=== PATIENT | female | born 1960 | race Caucasian/White ===

== ENCOUNTER 2018-04-28 10:24 | Emergency (ER) | payer OTHER, MEDICARE ==
[~2018-04-28] VITALS: Ht 160 cm; Wt 77.1 kg
[~2018-04-28 10:24] MED LIST: BACTRIM DS TAB1 EACH PO; BUPROPION XL300 M1 PO; CEFUROXIME500 MG PO; CITALOPRAM HBR10 MG PO; CYCLOBENZAPRINE10 M1 PO; FENTANYL1 EAC3 TOP; GABAPENTIN400 M2 PO; MULTI-DAY VITA1 EACH PO; PRAZOSIN HCL2 M1 PO; SERTRALINE HCL100 MG PO; TRAZODONE HCL100 M1 PO; XANAX XR1 M1 PO; XARELTO20 M2 PO; ZOFRAN ODT4 M1 SL
--- NOTE | 2018-04-28 11:10 | ED GI/GU/ABDOMINAL COMPLAINT ---
History of Present Illness General Chief Complaint: Abdominal Pain/Flank Pain Stated Complaint: ABD PAIN, +NVD X2 DAYS Source: patient Exam Limitations: no limitations Vital Signs & Intake/Output Vital Signs & Intake/Output Vital Signs Date Time Temp Pulse Resp B/P B/P Pulse O2 O2 Flow FiO2 Mean Ox Delivery Rate 04/28 1718 95 96 Room Air 04/28 1630 98.4 112 18 170/94 98 Room Air 04/28 1422 98.3 110 18 172/97 97 Room Air 04/28 1027 98.9 119 20 166/110 98 Room Air Allergies Coded Allergies: metoclopramide (From REGLAN) (Severe, DISTONIC REACTION 04/18/17) prochlorperazine (From COMPAZINE) (Severe, DISTONIC REACTION 04/18/17) Reconcile Medications Bupropion HCl (Bupropion XL) 300 MG TAB.ER.24H 1 TAB PO QAM MENTAL HEALTH ( Reported) Citalopram Hydrobromide (Citalopram HBr) 10 MG TABLET 1 TAB PO DAILY MENTAL HEALTH (Reported) Cyclobenzaprine HCl 10 MG TABLET 1 TAB PO TID MUSCLE RELAXANT (Reported) Fentanyl 50 MCG/HOUR PATCH.TD72 1 PAT TOP Q48 PAIN (Reported) Gabapentin 400 MG CAPSULE 1 CAP PO TID PAIN (Reported) Ondansetron (Zofran Odt) 4 MG TAB.RAPDIS 1 TAB SL TID PRN nausea Prazosin HCl 2 MG CAPSULE 1 CAP PO QPM SLEEP (Reported) Rivaroxaban (Xarelto) 20 MG TABLET 1 TAB PO DAILY BLOOD THINNER (Reported) with food Trazodone HCl 100 MG TABLET 1 TAB PO QPM SLEEP (Reported) Triage Note: PT TO ED C/O ABD PAIN, N/V/D SINCE SATURDAY. UPPER ABD PAIN RADIATING TO BACK, DENIES S/S. Triage Nurses Notes Reviewed? yes ? n Is pt currently ? No Onset: Gradual Duration: day(s): Timing: recent history Quality/Severity: moderate HPI: 57yo female with hx of chronic pain, depression, anxiety presents to ED complaining of nausea and vomiting for the past two days. Patient reports diarrhea beginning today. Patient reports central abdominal pain radiating to both sides. Patient reports cold sweats and chills. She has been unable to tolerate PO due to her nausea and vomiting. The patient denies urinary symptoms , sick contact, constipation. (Brigitte Lorenzo) Past History Travel History Traveled to [place] past 21 day No Medical History Any Pertinent Medical History? see below for history Neurological: NONE EENT: NONE Cardiovascular: NONE Respiratory: NONE Gastrointestinal: NONE Hepatic: NONE Renal: NONE Musculoskeletal: CHRONIC PAIN Psychiatric: depression Endocrine: NONE Blood Disorders: DVT, PE Surgical History Surgical History: non-contributory Psychosocial History What is your primary language Uzbek Tobacco Use: Never used ETOH Use: denies use Illicit Drug Use: denies illicit drug use Family History Hx Contributory? No (Brigitte Lorenzo) Review of Systems Review of Systems Constitutional: Reports: see HPI. EENTM: Reports: no symptoms. Respiratory: Reports: no symptoms. Cardiovascular: Reports: no symptoms. GI: Reports: see HPI. Genitourinary: Reports: no symptoms. Musculoskeletal: Reports: no symptoms. Skin: Reports: no symptoms. Neurological/Psychological: Reports: no symptoms. Hematologic/Endocrine: Reports: no symptoms. Immunologic/Allergic: Reports: no symptoms. All Other Systems: Reviewed and Negative (Brigitte Lorenoz) Physical Exam Physical Exam General Appearance: well developed/nourished, no apparent distress, alert, awake Head: atraumatic, normal appearance Eyes: Bilateral: normal appearance. Ears, Nose, Throat, Mouth: hearing grossly normal Neck: normal inspection, supple, full range of motion Respiratory: normal breath sounds, no respiratory distress, lungs clear Cardiovascular: regular rate/rhythm Gastrointestinal: normal bowel sounds, soft, no organomegaly, generalized tenderness without gaurding or rebound Back: normal inspection, normal range of motion Extremities: normal range of motion Neurologic/Psych: awake, alert, oriented x 3 Skin: intact, normal color, warm/dry Core Measures ACS in differential dx? No Sepsis Present: No Sepsis Focused Exam Completed? No (Brigitte Lorenzo) Progress Differential Diagnosis: appendicitis, bowel obstruction, colon cancer, diverticulitis, gastritis, hepatitis, hernia, SBO, UTI/pyelo, gastroenteritis Plan of Care: Orders Procedure Date/time Status Add-on Test (ER Only) 04/28 1138 Active URINE DRUGS OF ABUSE 04/28 1110 Complete URINALYSIS 04/28 1110 Complete TROPONIN LEVEL 04/28 1110 Complete LIPASE 04/28 1110 Complete COMPREHENSIVE METABOLIC PANEL 04/28 1110 Complete CBC WITHOUT DIFFERENTIAL 04/28 1110 Complete AMYLASE 04/28 1110 Complete EKG 04/28 1110 Active Laboratory Tests 04/28/18 1143: Urine Opiates Screen < 100, Methadone Screen 64, Barbiturate Screen < 60, Ur Phencyclidine Scrn < 6.00, Amphetamines Screen < 100, U Benzodiazepines Scrn > 800 H, Urine Cocaine Screen < 50, Urine Cannabis Screen < 5.00, Urine Color YEL , Urine Clarity CLDY H, Urine pH 7.0, Ur Specific [place] 1.015, Urine Protein NEG, Urine Ketones NEG, Urine Nitrite NEG, Urine Bilirubin NEG, Urine Urobilinogen 0.2, Ur Leukocyte Esterase SMALL H, Ur Microscopic SEDIMENT EXAMINED, Urine RBC >75 H, Urine WBC 5-10 H, Ur Epithelial Cells FEW, Urine Bacteria MOD H, Urine Hemoglobin LARGE H, Urine Glucose NEG 04/28/18 1130: Anion Gap 13, Estimated GFR > 60, BUN/Creatinine Ratio 13.3, Glucose 145 H, Calcium 10.3 H, Total Bilirubin 0.7, AST 39 H, ALT 40, Alkaline Phosphatase 123, Troponin I < 0.01, Total Protein 8.5 H, Albumin 4.8, Globulin 3.7, Albumin /Globulin Ratio 1.3, Amylase 40, Lipase 69, CBC w Diff NO MAN DIFF REQ, RBC 4.68 , MCV 88.8, MCH 30.7, MCHC 34.5, RDW 14.7 H, MPV 8.2, Gran % 80.1 H, Lymphocytes % 13.1 L, Monocytes % 5.2, Eosinophils % 0.6, Basophils % 1.0, Absolute Granulocytes 4.1, Absolute Lymphocytes 0.7 L, Absolute Monocytes 0.3, Absolute Eosinophils 0, Absolute Basophils 0.1 Patient's labs are non actionable. She is lying in stretcher in no acute distress, her vital signs are stable. CT scan shows no acute abnormality. Patient reports some improvement following IV Zofran, fluids, felt no patch. Patient is now tolerating PO here in the emergency department. She is nontoxic appearing. Patient was comfortable going home at this time. She was instructed to continue Zofran. If symptoms are persistent she was given a referral to a boarding house cook to follow up with.. Patient was given strict return precautions which she understands. The patient agrees with the plan of care. Diagnostic Imaging: Viewed by Me: CT Scan. Discussed w/RAD: CT Scan. Radiology Impression: PATIENT: FOREIGN MEDINA PRESENT AGE: 57 PATIENT ACCOUNT NO: [id number] : 62 LOCATION: [facility] ORDERING PHYSICIAN: Brigitte HANLEY SERVICE DATE: 04/28/18882 EXAM TYPE: CAT - CT ABD & PELVIS W IV CONTRAST EXAMINATION: CT ABDOMEN AND PELVIS WITH CONTRAST CLINICAL INFORMATION: 57-year-old female with upper abdominal pain , nausea, vomiting and diarrhea. Evaluate for colitis, cholecystitis, pancreatitis. COMPARISON: 06/02/2017 and 09/24/2017. TECHNIQUE: Multidetector volumetric imaging was performed of the abdomen and pelvis following IV administration of 95 mL of Optiray 320 intravenous contrast. Sagittal and coronal reformatted images were obtained on the technologist's workstation. DLP: 485 mGy-cm FINDINGS: LUNG BASES: Small, 0.2 cm noncalcified nodule of the middle lobe is unchanged compared to 06/02/2017. LIVER, GALLBLADDER, AND BILIARY TREE: Diffuse hepatic steatosis. No focal hepatic lesion. Gallbladder is unremarkable. No evidence of radiopaque calculi, gallbladder wall edema, pericholecystic inflammatory change or bile duct dilatation. PANCREAS: Mild atrophy and mild fatty replacement of pancreas. No focal pancreatic lesion. No pancreatic ductal dilatation or peripancreatic edema. SPLEEN: Unremarkable. ADRENAL GLANDS: Unremarkable. KIDNEYS AND URETERS: Kidneys are normal in size and enhance symmetrically. No nephrolithiasis, hydronephrosis or perinephric edema. BLADDER: Unremarkable. GASTROINTESTINAL TRACT: Bowel loops are normal in caliber. The appendix is normal. No evidence of acute inflammation or obstruction along the gastrointestinal tract. There is a diverticulum of the third portion of the duodenum without diverticulitis. No ascites or pneumoperitoneum. ABDOMINAL WALL : Small fat-containing umbilical hernia is unchanged. LYMPH NODES: Normal. VASCULAR: Abdominal aorta is normal in caliber. A filter is well-positioned within the infrarenal segment of the IVC. PELVIC VISCERA: The uterus and adnexa are unremarkable. No pelvic mass or free fluid. OSSEOUS STRUCTURES: Again noted are the surgical changes from discectomy and fusion at L4-S1. Laminectomy defects are seen at L4-L5. No hardware complication. No paraspinal fluid collection. IMPRESSION: 1. Diffuse hepatic steatosis. 2. No acute findings in the abdomen or pelvis compared to 09/24/2017. No evidence of pancreatitis, cholecystitis or colitis. DICTATED BY: Ismael Gaytan MD DATE/TIME DICTATED:12/15 LEGAL COORDINATOR:TEJAS DATE/TIME TRANSCRIBED:04/28/181409 CONFIDENTIAL, DO NOT COPY WITHOUT APPROPRIATE AUTHORIZATION. <Electronically signed in Other Vendor System> SIGNED BY: Ismael Gaytan MD 04/28/18 1423 Initial ED EKG: none (Brigitte Lorenzo) Departure Departure Disposition: HOME OR SELF CARE Condition: Stable Clinical Impression Primary Impression: Abdominal pain Qualifiers: Abdominal location: unspecified location Qualified Code: R10.9 - Unspecified abdominal pain Secondary Impressions: Nausea vomiting and diarrhea Referrals: Levar Mccarty MD Patient Has No Primary Care Dr (PCP/Family) Additional Instructions: Take Zofran as prescribed as needed for nausea and vomiting. Follow-up with the boarding house cook you are referred to today. Return with worsening symptoms or concerns. Please note that there might be incidental findings in your evaluation that are unrelated to the current emergency department visit. Please notify your primary care doctor about this emergency department visit in order to obtain and review all of the testing performed so that these incidental findings can be monitored as needed. If you had an x-ray performed, please understand that some fractures may not be seen on the initial set of x-rays. If your symptoms persist you might need a repeat set of x-rays to check for such a fracture. If you had a laceration evaluated, please understand that foreign bodies such as glass or wood may not be visible to the naked eye or on plain x-rays. If the wound becomes red, swollen, increasingly more painful or if there is any drainage from the wound, please have it reevaluated by a physician for the possibility of a retained foreign body. If you're unable to follow up as outlined in the discharge instructions please return to the emergency department. Thank you for choosing the [facility] Emergency Department for your care. It was a pleasure to serve you today. Departure Forms: Customer Survey General Discharge Information Prescriptions: Current Visit Scripts Ondansetron (Zofran Odt) 1 TAB SL TID PRN nausea #10 TAB (Brigitte Lorenzo) PA/SANITATION INSPECTOR Co-Sign Statement Statement: ED Attending supervision documentation- I saw and evaluated the patient. I have also reviewed all the pertinent lab results and diagnostic results. I agree with the findings and the plan of care as documented in the PA's/SANITATION INSPECTOR's documentation. x I have reviewed the ED Record and agree with the PA's/SANITATION INSPECTOR's documentation. [] Additions or exceptions (if any) to the PAs/SANITATION INSPECTOR's note and plan are summarized below: [] (An FLORES,Kulwant)
[2018-04-28 11:38] LABS: ABSOLUTE BASOPHIL COUNT 0.1 /CUMM (0.0-0.2); ABSOLUTE EOSINOPHIL COUNT 0 /CUMM (0.0-0.7); ABSOLUTE GRANULOCYTE CT 4.1 /CUMM (1.4-6.5); ABSOLUTE LYMPH COUNT 0.7 /CUMM (1.2-3.4); ABSOLUTE MONOCYTE COUNT 0.3 /CUMM (0.10-0.60); EOSINOPHIL % 0.6 % (0-5); GRANULOCYTE % 80.1 % (42.2-75.2); HEMATOCRIT 41.6 % (37-47); MEAN CORPUSCULAR HGB 30.7 PG (27.0-31.0); MEAN CORPUSCULAR HGB CONC 34.5 G/DL (33.0-37.0); MEAN CORPUSCULAR VOLUME 88.8 FL (81.0-99.0); MEAN PLATELET VOLUME 8.2 FL (7.4-10.4); PLATELET COUNT 269 /CUMM (130-400); RBC DISTRIBUTION WIDTH 14.7 % (11.5-14.5); RED BLOOD CELL CT 4.68 /CUMM (4.20-5.40); WHITE BLOOD CELL COUNT 5.2 /CUMM (4.8-10.8)
--- NOTE | 2018-04-28 14:23 | CT SCAN REPORT ---
EXAMINATION: CT ABDOMEN AND PELVIS WITH CONTRAST CLINICAL INFORMATION: 57-year-old female with upper abdominal pain, nausea, vomiting and diarrhea. Evaluate for colitis, cholecystitis, pancreatitis. COMPARISON: 06/02/2017 and 09/24/2017. TECHNIQUE: Multidetector volumetric imaging was performed of the abdomen and pelvis following IV administration of 95 mL of Optiray 320 intravenous contrast. Sagittal and coronal reformatted images were obtained on the technologist's workstation. DLP: 485 mGy-cm FINDINGS: LUNG BASES: Small, 0.2 cm noncalcified nodule of the middle lobe is unchanged compared to 06/02/2017. LIVER, GALLBLADDER, AND BILIARY TREE: Diffuse hepatic steatosis. No focal hepatic lesion. Gallbladder is unremarkable. No evidence of radiopaque calculi, gallbladder wall edema, pericholecystic inflammatory change or bile duct dilatation. PANCREAS: Mild atrophy and mild fatty replacement of pancreas. No focal pancreatic lesion. No pancreatic ductal dilatation or peripancreatic edema. SPLEEN: Unremarkable. ADRENAL GLANDS: Unremarkable. KIDNEYS AND URETERS: Kidneys are normal in size and enhance symmetrically. No nephrolithiasis, hydronephrosis or perinephric edema. BLADDER: Unremarkable. GASTROINTESTINAL TRACT: Bowel loops are normal in caliber. The appendix is normal. No evidence of acute inflammation or obstruction along the gastrointestinal tract. There is a diverticulum of the third portion of the duodenum without diverticulitis. No ascites or pneumoperitoneum. ABDOMINAL WALL: Small fat-containing umbilical hernia is unchanged. LYMPH NODES: Normal. VASCULAR: Abdominal aorta is normal in caliber. A filter is well-positioned within the infrarenal segment of the IVC. PELVIC VISCERA: The uterus and adnexa are unremarkable. No pelvic mass or free fluid. OSSEOUS STRUCTURES: Again noted are the surgical changes from discectomy and fusion at L4-S1. Laminectomy defects are seen at L4-L5. No hardware complication. No paraspinal fluid collection. IMPRESSION: 1. Diffuse hepatic steatosis. 2. No acute findings in the abdomen or pelvis compared to 09/24/2017. No evidence of pancreatitis, cholecystitis or colitis.
[2018-04-28] MEDS ORDERED: ZOFRAN ODT4 M1 SL (17:08)
[2018-04-28 17:57] VITALS: BP 144/80
== END 2018-04-28 17:57 ==
LOC: ERH 10:24
PROVIDERS: Physician Assistant
DX: R11.2 Nausea with vomiting, unspecified (principal); R10.9 Unspecified abdominal pain; R19.7 Diarrhea, unspecified
CPT/HCPCS: 74177; 80307; 81001; 93005; 93010; 96361; 96374; 96375; 96376; J1885; J2405